=== PATIENT | female | born 1985 | race Caucasian/White ===

== ENCOUNTER 2019-05-03 09:45 | Emergency (ER) | payer OTHER ==
[2019-05-03 10:08] VITALS: BP 94/64
--- NOTE | 2019-05-03 10:57 | UC ---
UC General HPI - HPI Summary HPI Summary: 33-year-old female presenting with father for diarrhea 1.5 weeks. Patient states the diarrhea is "mostly water." States 6-10 episodes per day. Denies blood in the stool. Denies pain with defecation. Denies abdominal pain but notes bloating and discomfort. Denies nausea and vomiting. Notes normal appetite but is trying not to eat so that she does not have to go to the bathroom. Denies urinary symptoms. Denies fever and chills. Denies exacerbating or alleviating symptoms. States symptoms began one day before leaving [place] where she lives to travel up here for vacation. States she has developed congestion and mild cough 4 days ago. Denies sore throat. Denies sob and wheezing. Denies travel outside the country. Denies new medications and foods. States she has been using Pepto and Imodium without relief. Patient adds that she "always has lower blood pressure and tachycardia." Has been worked up for it in the past. - History of Current Complaint Chief Complaint: UCGeneralIllness Stated Complaint: DIARHEA,COUGH,SNEEZING-TRAVEL TO DE Hx Obtained From: Patient Hx Last Menstrual Period: bcp Pain Intensity: 7 - Allergy/Home Medications Allergies/Adverse Reactions: Allergies Allergy/AdvReac Type Severity Reaction Status Date / Time Penicillins Allergy anaph Verified 05/03/19 10:09 Sulfa (Sulfonamide Allergy Hives Verified 05/03/19 10:09 Antibiotics) Home Medications: Home Medications FLUoxetine* [Prozac*] 80 mg PO DAILY 05/03/19 [History Confirmed 05/03/19] Methocarbamol* [Robaxin 100 MG/ML*] 750 mg PO BID 05/03/19 [History Confirmed ] Nortriptyline CAP* [Nortriptylline CAP*] 100 mg PO DAILY 05/03/19 [History Confirmed 05/03/19] Topamax 100 mg tab 200 mg PO DAILY 05/03/19 [History Confirmed 05/03/19] Topiramate TAB(*) [Topamax 100 mg tab] 100 mg PO DAILY 05/03/19 [History Confirmed 05/03/19] Zolpidem TAB* [Ambien*] 1 tab PO DAILY 05/03/19 [History Confirmed 05/03/19] clonazePAM TAB(*) [Klonopin TAB(*)] 2 tab PO DAILY 05/03/19 [History Confirmed 05/03/19] traZODone TAB* [Desyrel TAB*] 200 mg PO DAILY 05/03/19 [History Confirmed ] PMH/Surg Hx/FS Hx/Imm Hx - Surgical History Surgical History: Yes Surgery Procedure, Year, and Place: [facility] - Social History Alcohol Use: None Substance Use Type: None Smoking Status (MU): Never Smoked Tobacco Review of Systems All Other Systems Reviewed And Are Negative: Yes Constitutional: Positive: Negative ENT: Positive: Sinus Congestion Respiratory: Positive: Cough. Negative: Shortness Of Breath Cardiovascular: Positive: Negative Physical Exam - Summary Physical Exam Summary: Vital Signs Reviewed: Yes A+Ox3, no distress, well-appearing Eyes: Conjunctiva Clear ENT: Hearing grossly normal, TM x 2 clear, moist, uvula midline, no exudate, no erythema Neck: Positive: Supple Respiratory: Positive: No respiratory distress, No accessory muscle use + CTA throughout no w/r Cardiovascular: RRR nl s1, s2 no m/r Abd: soft + BS mild diffuse tenderness throughout abdomen, no distention no guarding no McBurney's point tenderness, negative Adams sign Musculoskeletal Exam: VALENTINO x 4 without difficulty Neurological: Positive: Alert Psychological: Positive: age appropriate behavior Skin: Positive: no rash, no ecchymosis Vital Signs: Initial Vital Signs Temp 98.3 F 05/03/19 10:06 Pulse 110 05/03/19 10:06 Resp 20 05/03/19 10:06 BP 94/64 05/03/19 10:06 Pulse Ox 100 05/03/19 10:06 Lab Results 05/03/19 05/03/19 05/03/19 Range/Units 11:13 12:07 12:09 POC Urine Color Yellow POC Urine Clarity Clear POC Urine pH 6.0 (5-9) POC Ur Specif Brewer >= 1.030 (1.010-1.030) POC Urine Protein Negative (Negative) POC Ur Glucose (UA) Negative (Negative) POC Urine Ketones Negative (Negative) POC Urine Blood 1+ A (Negative) POC Urine Nitrite Negative (Negative) POC Urine Bilirubin Negative (Negative) POC Urine Urobilinogen 0.2 (Negative) POC U Leukocyte Esteras Negative (Negative) POC Ur Test Negative (Negative) Influenza A (Rapid) Negative (Negative) Influenza B (Rapid) Negative (Negative) Course/Dx - Course Course Of Treatment: Negative rapid flu and UA. Negative urine . Patient provided us with stool sample which was sent for culture. I informed the patient that she'll be notified with any positive results that warrant treatment. Educated on symptomatic treatment in the meantime and to follow-up next week with PCP in [place] when she gets back home if symptoms are persisting. I educated on signs and symptoms of worsening illness and instructed to go to the ED if any red flags occur. Patient voiced understanding and agreed with treatment plan. - Diagnoses Provider Diagnosis: Acute diarrhea, Viral URI Discharge ED - Sign-Out/Discharge Documenting (check all that apply): Patient Departure All imaging exams completed and their final reports reviewed: No Studies - Discharge Plan Condition: Stable Disposition: HOME Patient Education Materials: Acute Diarrhea (ED) Referrals: No Primary Care Phys,NOPCP [Primary Care Provider] - Additional Instructions: Your stool has been sent for culture. You will be notified with any results that warrant treatment. Increase your fluid intake. Avoid caffeine intake. Discontinue use of pepto and imodium if not helping symptoms. Eat a bland diet, such as toast, bananas, and rice while symptoms are present. Follow up with your primary care provider if symptoms do not improve within 1 week. Go to the emergency room if you experience new or worsening symptoms, including fever severe abdominal pain, blood in the stool, or inability to keep fluids down. - Billing Disposition and Condition Condition: STABLE Disposition: Home
[2019-05-03 11:25] LABS: Influenza A Molecular Negative (Negative); Influenza B Molecular Negative (Negative)
== END 2019-05-03 12:25 | disposition home or self-care (01) ==
LOC: UCEAST 09:45
DX: R19.7 Diarrhea, unspecified (principal); J06.9 Acute upper respiratory infection, unspecified; Z88.0 Allergy status to penicillin; Z88.2 Allergy status to sulfonamides
CPT/HCPCS: 81003; 82270; 84702; 87045; 87046; 87328; 87329; 87493; 87899; 99201; G0463